=== PATIENT | female | born 1965 | race Caucasian/White ===

== ENCOUNTER 2017-12-27 10:10 | Inpatient (IN) | payer OTHER ==
[2017-12-27] MEDS ORDERED: Potassium Chloride 10 MEQ in Premix Bag 1 BAG IV ONE (10:35)
[2017-12-27] MEDS ORDERED: cefOXitin 2 GM in Premix Bag 1 BAG IV ONE (10:36)
[2017-12-27] MEDS ORDERED: Sodium Chloride 0.9% 1,000 ML IV SCH (10:45)
--- NOTE | 2017-12-27 12:54 | EDM.PDOC ---
ED HPI GENERAL MEDICAL PROBLEM - General Chief Complaint: Abdominal Pain Stated Complaint: R SIDE ABD PAIN Time Seen by Provider: 12/27/17 10:16 Source of Information: Reports: Patient, RN Notes Reviewed - History of Present Illness INITIAL COMMENTS - FREE TEXT/NARRATIVE: 52-year-old lady has been referred here from [facility] for probable appendicitis. She first became ill about one week ago with vague nonspecific upper abdominal discomfort. That did last for several days and has not ever completely gone away. She states for the next 2 or 3 days she had loss of appetite low-grade fever chills, low energy and just "felt sick" spending much of that time in bed. Her appetite slowly did improve a few days ago and she has become more active but there has been lower abdominal discomfort that has not gone away, worse with motion. 7 to the [facility] yesterday afternoon, labs were done and then CT of abdomen pelvis ordered for this morning. He obtained a CT this morning does show inflammatory process right lower abdomen suspicious for "ruptured appendicitis". - Related Data Allergies Allergy/AdvReac Type Severity Reaction Status Date / Time erythromycin base Allergy Pain Verified 12/27/17 10:26 [From Ilosone] IV Contrast Allergy Other Uncoded 12/27/17 10:26 Home Meds: Home Meds Diltiazem HCl [Diltiazem 24Hr ER] 360 mg PO DAILY 12/27/17 [History] Omeprazole/Sodium Bicarbonate [Zegerid 20 MG] 20 mg PO DAILY PRN 12/27/17 [ History] Spironolact/Hydrochlorothiazid [Spironolactone-Hctz 25-25 Tab] 25 mg PO DAILY [History] Past Medical History HEENT History: Reports: Impaired Vision Other HEENT History: wears eyeglasses, druzens OU. Cardiovascular History: Reports: Heart Murmur, Hypertension Gastrointestinal History: Reports: GERD, Hiatal Hernia [employer] History: Reports: Musculoskeletal History: Reports: Fracture Hematologic History: Reports: Anemia, Iron Deficiency - Infectious Disease History Infectious Disease History: Reports: Chicken Pox - Past Surgical History HEENT Surgical History: Reports: Tonsillectomy Social & Family History - Tobacco Use Smoking Status *Q: Never Smoker Second Hand Smoke Exposure: No - Caffeine Use Caffeine Use: Reports: Soda - Recreational Drug Use Recreational Drug Use: No ED ROS GENERAL - Review of Systems Review Of Systems: See Below Constitutional: Reports: Fever (Low-grade fever off-and-on for about a week), Chills (Many days ago, gone) HEENT: Denies: Throat Pain Respiratory: Denies: Shortness of Breath, Cough Cardiovascular: Denies: Chest Pain Endocrine: Reports: Fatigue GI/Abdominal: Reports: Abdominal Pain (For about 1 week, started upper abdomen, now lower abdomen), Decreased Appetite, Nausea : Reports: No Symptoms Musculoskeletal: Reports: Other (Generalized achiness) Skin: Reports: No Symptoms Neurological: Reports: Dizziness ED EXAM, GI/ABD - Physical Exam Exam: See Below General Appearance: Alert, No Apparent Distress Throat/Mouth: Normal Inspection, Normal Oropharynx Head: Atraumatic. No: Facial Swelling Neck: Supple, Full Range of Motion Respiratory/Chest: No Respiratory Distress, Lungs Clear, Normal Breath Sounds Cardiovascular: Tachycardia (Heart rate 100 on arrival to ED) GI/Abdominal Exam: Soft, Rebound (Very mild), Tender (Moderate tenderness right lower quadrant). No: Guarding Back Exam: No: CVA Tenderness (L), CVA Tenderness (R) Extremities: Normal Inspection, Normal Range of Motion Neurological: Alert, Oriented, No Motor/Sensory Deficits Skin Exam: Warm, Dry, Normal Color Course - Vital Signs Last Recorded V/S: Last Vital Signs Temp 99.1 F 12/27/17 11:14 Pulse 88 12/27/17 11:14 Resp 16 12/27/17 11:14 BP 180/90 H 12/27/17 11:14 Pulse Ox 97 12/27/17 11:14 - Orders/Labs/Meds Orders: Active Orders 24 hr Category Date Time Status Patient Status [ADT] Routine ADT 12/27/17 13:02 Active Oxygen Therapy [RC] PRN Care 12/27/17 13:02 Active VTE/DVT Education [RC] PER UNIT ROUTINE Care 12/27/17 13:02 Active Vital Signs [RC] Q4H Care 12/27/17 13:02 Active Nothing Per Oral Diet [DIET] Diet 12/27/17 Dinner Active CBC WITH AUTO DIFF [HEME] DAILY Lab 12/28/17 06:00 Ordered CBC WITH AUTO DIFF [HEME] DAILY Lab 12/29/17 06:00 Ordered CBC WITH AUTO DIFF [HEME] DAILY Lab 12/30/17 06:00 Ordered CBC WITH AUTO DIFF [HEME] DAILY Lab 12/31/17 06:00 Ordered Enoxaparin [Lovenox] Med 12/27/17 13:15 Active 40 mg SUBCUT DAILY HYDROmorphone [Dilaudid] Med 12/27/17 13:06 Active 0.5 mg IVPUSH Q2H PRN Ondansetron [Zofran] Med 12/27/17 13:06 Active 4 mg IVPUSH Q8H PRN Piperacillin/Tazobactam [Zosyn] 4.5 gm Med 12/27/17 16:00 Active Sodium Chloride 0.9% [Normal Saline] 100 ml IV ONETIME Piperacillin/Tazobactam [Zosyn] 4.5 gm Med 12/28/17 00:00 Active Sodium Chloride 0.9% [Normal Saline] 100 ml IV Q8H Sodium Chloride 0.9% [Normal Saline] 1,000 ml Med 12/27/17 13:15 Active IV ASDIRECTED Sodium Chloride 0.9% [Normal Saline] 1,000 ml Med 12/27/17 10:45 Active IV ONETIME Resuscitation Status Routine Resus Stat 12/27/17 13:02 Ordered Medication Orders Enoxaparin Sodium (Lovenox) 40 mg SUBCUT DAILY TONY Hydromorphone HCl (Dilaudid) 0.5 mg IVPUSH Q2H PRN PRN Reason: Pain Sodium Chloride (Normal Saline) 1,000 mls @ 999 mls/hr IV ONETIME TONY Last Admin: 12/27/17 11:05 Dose: 999 mls/hr Piperacillin Sod/Tazobactam (Sod 4.5 gm/ Sodium Chloride) 100 mls @ 200 mls/hr IV ONETIME ONE Stop: 12/27/17 16:29 Sodium Chloride (Normal Saline) 1,000 mls @ 125 mls/hr IV ASDIRECTED TONY Piperacillin Sod/Tazobactam (Sod 4.5 gm/ Sodium Chloride) 100 mls @ 25 mls/hr IV Q8H TONY Ondansetron HCl (Zofran) 4 mg IVPUSH Q8H PRN PRN Reason: Nausea/Vomiting Labs: Laboratory Tests 12/27/17 12/27/17 12/27/17 Range/Units 10:45 10:45 10:45 WBC 12.82 H (3.98-10.04) K/mm3 RBC 5.63 H (3.98-5.22) M/mm3 Hgb 15.3 (11.2-15.7) gm/L Hct 46.2 H (34.1-44.9) % MCV 82.1 (79.4-94.8) fl MCH 27.2 (25.6-32.2) pg MCHC 33.1 (32.2-35.5) g/dl RDW Std Deviation 39.7 (36.4-46.3) fL Plt Count 312 (182-369) K/mm3 MPV 10.3 (9.4-12.3) fl Neut % (Auto) 67.4 (34.0-71.1) % Lymph % (Auto) 21.4 (19.3-51.7) % [place] % (Auto) 8.9 (4.7-12.5) % Eos % (Auto) 0.5 L (0.7-5.8) Baso % (Auto) 0.6 (0.1-1.2) % Neut # (Auto) 8.63 H (1.56-6.13) K/mm3 Lymph # (Auto) 2.74 (1.18-3.74) K/mm3 [place] # (Auto) 1.14 H (0.24-0.36) K/mm3 Eos # (Auto) 0.07 (0.04-0.36) K/mm3 Baso # (Auto) 0.08 (0.01-0.08) K/mm3 Manual Slide Review Abnormal smear Sodium 139 (136-145) mEq/L Potassium 2.9 L (3.5-5.1) mEq/L Chloride 99 (98-107) mEq/L Carbon Dioxide 29 (21-32) mEq/L Anion Gap 13.9 (5-15) BUN 12 (7-18) mg/dL Creatinine 0.9 (0.55-1.02) mg/dL Est Cr Clr Drug Dosing 61.71 mL/min Estimated GFR (MDRD) > 60 (>60) mL/min BUN/Creatinine Ratio 13.3 L (14-18) Glucose 121 H (74-106) mg/dL Calcium 10.0 (8.5-10.1) mg/dL Total Bilirubin 0.5 (0.2-1.0) mg/dL AST 14 L (15-37) U/L ALT 30 (14-59) U/L Alkaline Phosphatase 81 (46-116) U/L C-Reactive Protein 12.4 H* (<1.0) mg/dL Total Protein 8.7 H (6.4-8.2) g/dl Albumin 3.4 (3.4-5.0) g/dl Globulin 5.3 gm/dL Albumin/Globulin Ratio 0.6 L (1-2) Meds: Medications Generic Name Dose Route Start Last Admin Trade Name Freq PRN Reason Stop Dose Admin Enoxaparin Sodium 40 mg 12/27/17 13:15 Lovenox SUBCUT DAILY TONY Hydromorphone HCl 0.5 mg 12/27/17 13:06 Dilaudid IVPUSH Q2H PRN Pain Sodium Chloride 1,000 mls @ 999 mls/hr 12/27/17 10:45 12/27/17 11:05 Normal Saline IV 999 mls/hr ONETIME TONY Administration Piperacillin Sod/Tazobactam 100 mls @ 200 mls/hr 12/27/17 16:00 Sod 4.5 gm/ Sodium Chloride IV 12/27/17 16:29 ONETIME ONE Sodium Chloride 1,000 mls @ 125 mls/hr 12/27/17 13:15 Normal Saline IV ASDIRECTED TONY Piperacillin Sod/Tazobactam 100 mls @ 25 mls/hr 12/28/17 00:00 Sod 4.5 gm/ Sodium Chloride IV Q8H TONY Ondansetron HCl 4 mg 12/27/17 13:06 Zofran IVPUSH Q8H PRN Nausea/Vomiting Discontinued Medications Generic Name Dose Route Start Last Admin Trade Name Freq PRN Reason Stop Dose Admin Potassium Chloride 10 meq/ 100 mls @ 50 mls/hr 12/27/17 10:35 12/27/17 11:50 Premix IV 12/27/17 12:34 50 mls/hr ASDIRECTED ONE Administration Cefoxitin Sodium 2 gm/ Premix 50 mls @ 100 mls/hr 12/27/17 10:36 12/27/17 11: 10 IV 12/27/17 11:05 100 mls/hr ONETIME ONE Administration - Re-Assessments/Exams Free Text/Narrative Re-Assessment/Exam: 12/27/17 13:52 White blood count, C-reactive protein were moderately elevated. CT of abdomen shows inflammatory change right lower abdomen strongly suggestive for ruptured appendix. See radiology report for details. We have started IV antibiotics. I discussed this with Dr. Lynch., General surgeon on-call. Valuated patient here in the ED, reviewed the CT personally. At this time he does not see any sign of abscess formation. There is a large area of phlegmon. His recommendation is hospital admission for further IV antibiotics. Patient is agreeable to that plan. Departure - Departure Time of Disposition: 12:00 Disposition: Admitted As Inpatient 64 Condition: Serious Clinical Impression: Appendicitis Qualifiers: Appendicitis type: acute appendicitis Acute appendicitis type: with localized peritonitis Qualified Code(s): K35.3 - Acute appendicitis with localized peritonitis - Discharge Information Referrals: Brooke [facility]s [facility]FORMAN[facility] CONSULTANT [Primary Care Provider] - Forms: ED Department Discharge - My Orders Last 24 Hours: My Active Orders 12/27/17 10:45 Sodium Chloride 0.9% [Normal Saline] 1,000 ml IV ONETIME - Assessment/Plan Last 24 Hours: My Active Orders 12/27/17 10:45 Sodium Chloride 0.9% [Normal Saline] 1,000 ml IV ONETIME
[2017-12-27] MEDS ORDERED: HYDROmorphone 0.5 MG/0.5 ML SYRINGE IVPUSH PRN (13:06)
--- NOTE | 2017-12-27 13:07 | PCM.HP ---
H&P History of Present Illness - General Date of Service: 12/27/17 Admit Problem/Dx: Admission Diagnosis/Problem Admission Diagnosis/Problem Appendicitis Source of Information: Patient History Limitations: Reports: No Limitations - History of Present Illness Initial Comments - Free Text/Narative: 52 yo female, presents with abdominal pain that started about 8 days ago, starting in the upper abdomen, then migrating to the RLQ. Pain was associated with nausea and dry heaves, which resolved a few days ago. Patient did have subjective fevers, which have also resolved. Last meal was last night (almost 24 hours ago). She does have an appetite. RLQ abdominal pain has been mild but persistent. Given her persistent symptoms, she went to see her PCM, who ordered a CT scan for this morning. CT scan of the abd/pelvis showed findings concerning for ruptured appendicitis, which brought her to the ED. Patient with diarrhea from the contrast that she drank. Denies CP/SOB. - Related Data Allergies/Adverse Reactions: Allergies Allergy/AdvReac Type Severity Reaction Status Date / Time erythromycin base Allergy Pain Verified 12/27/17 16:20 [From Ilosone] IV Contrast Allergy Other Uncoded 12/27/17 10:26 Home Medications: Home Meds Diltiazem HCl [Diltiazem 24Hr ER] 360 mg PO DAILY 12/27/17 [History] Omeprazole/Sodium Bicarbonate [Zegerid 20 MG] 20 mg PO DAILY PRN 12/27/17 [ History] Spironolact/Hydrochlorothiazid [Spironolactone-Hctz 25-25 Tab] 25 mg PO DAILY [History] Past Medical History HEENT History: Reports: Impaired Vision Other HEENT History: wears eyeglasses, druzens OU. Cardiovascular History: Reports: Heart Murmur, Hypertension Gastrointestinal History: Reports: GERD, Hiatal Hernia MANAGER MEDIA History: Reports: Musculoskeletal History: Reports: Fracture Hematologic History: Reports: Anemia, Iron Deficiency - Infectious Disease History Infectious Disease History: Reports: Chicken Pox - Past Surgical History HEENT Surgical History: Reports: Tonsillectomy - History Comment History Comment: SEVERE OBESITY (BMI 47) Social & Family History - Tobacco Use Smoking Status *Q: Never Smoker Second Hand Smoke Exposure: No - Caffeine Use Caffeine Use: Reports: Soda - Recreational Drug Use Recreational Drug Use: No H&P Review of Systems - Review of Systems: Review Of Systems: ROS reveals no pertinent complaints other than HPI. Exam - Exam Exam: See Below - Vital Signs Vital Signs: Last Vital Signs Temp 37.3 C 12/27/17 11:14 Pulse 88 12/27/17 11:14 Resp 16 12/27/17 11:14 BP 180/90 H 12/27/17 11:14 Pulse Ox 97 12/27/17 11:14 Weight: 126.099 kg - Exam General: Alert, Oriented, Cooperative HEENT: Conjunctiva Clear Lungs: Clear to Auscultation, Normal Respiratory Effort Cardiovascular: Regular Rate, Regular Rhythm, Normal S1, Normal S2. No: Systolic Murmur GI/Abdominal Exam: Soft, Tender (MILDLY TENDER IN THE RLQ), Other (OBESE) - Patient Data Lab Results Last 24 hrs: Laboratory Results - last 24 hr 12/27/17 12/27/17 12/27/17 Range/Units 10:45 10:45 10:45 WBC 12.82 H (3.98-10.04) K/mm3 RBC 5.63 H (3.98-5.22) M/mm3 Hgb 15.3 (11.2-15.7) gm/L Hct 46.2 H (34.1-44.9) % MCV 82.1 (79.4-94.8) fl MCH 27.2 (25.6-32.2) pg MCHC 33.1 (32.2-35.5) g/dl RDW Std Deviation 39.7 (36.4-46.3) fL Plt Count 312 (182-369) K/mm3 MPV 10.3 (9.4-12.3) fl Neut % (Auto) 67.4 (34.0-71.1) % Lymph % (Auto) 21.4 (19.3-51.7) % [place] % (Auto) 8.9 (4.7-12.5) % Eos % (Auto) 0.5 L (0.7-5.8) Baso % (Auto) 0.6 (0.1-1.2) % Neut # (Auto) 8.63 H (1.56-6.13) K/mm3 Lymph # (Auto) 2.74 (1.18-3.74) K/mm3 [place] # (Auto) 1.14 H (0.24-0.36) K/mm3 Eos # (Auto) 0.07 (0.04-0.36) K/mm3 Baso # (Auto) 0.08 (0.01-0.08) K/mm3 Manual Slide Review Abnormal smear Sodium 139 (136-145) mEq/L Potassium 2.9 L (3.5-5.1) mEq/L Chloride 99 (98-107) mEq/L Carbon Dioxide 29 (21-32) mEq/L Anion Gap 13.9 (5-15) BUN 12 (7-18) mg/dL Creatinine 0.9 (0.55-1.02) mg/dL Est Cr Clr Drug Dosing 61.71 mL/min Estimated GFR (MDRD) > 60 (>60) mL/min BUN/Creatinine Ratio 13.3 L (14-18) Glucose 121 H (74-106) mg/dL Calcium 10.0 (8.5-10.1) mg/dL Total Bilirubin 0.5 (0.2-1.0) mg/dL AST 14 L (15-37) U/L ALT 30 (14-59) U/L Alkaline Phosphatase 81 (46-116) U/L C-Reactive Protein 12.4 H* (<1.0) mg/dL Total Protein 8.7 H (6.4-8.2) g/dl Albumin 3.4 (3.4-5.0) g/dl Globulin 5.3 gm/dL Albumin/Globulin Ratio 0.6 L (1-2) Result Diagrams: 12/27/17 10:45 12/27/17 10:45 Problem List Initiated/Reviewed/Updated: Yes Orders Last 24hrs: Active Orders 24 hr Category Date Time Status Patient Status [ADT] Routine ADT 12/27/17 13:02 Ordered Oxygen Therapy [RC] PRN Care 12/27/17 13:02 Ordered VTE/DVT Education [RC] PER UNIT ROUTINE Care 12/27/17 13:02 Ordered Vital Signs [RC] Q4H Care 12/27/17 13:02 Ordered Nothing Per Oral Diet [DIET] Diet 12/27/17 Dinner Ordered CBC WITH AUTO DIFF [HEME] DAILY Lab 12/28/17 06:00 Ordered CBC WITH AUTO DIFF [HEME] DAILY Lab 12/29/17 06:00 Ordered CBC WITH AUTO DIFF [HEME] DAILY Lab 12/30/17 06:00 Ordered CBC WITH AUTO DIFF [HEME] DAILY Lab 12/31/17 06:00 Ordered Enoxaparin [Lovenox] Med 12/27/17 13:15 Ordered 40 mg SUBCUT DAILY HYDROmorphone [Dilaudid] Med 12/27/17 13:06 Ordered 0.5 mg IVPUSH Q2H PRN Ondansetron [Zofran] Med 12/27/17 13:06 Ordered 4 mg IVPUSH Q8H PRN Piperacillin/Tazobactam [Zosyn] 4.5 gm Med 12/27/17 16:00 Ordered Sodium Chloride 0.9% [Normal Saline] 100 ml IV Q8H Sodium Chloride 0.9% @ 125 MLS/HR (1000ml Bag) Med 12/27/17 13:15 Ordered Sodium Chloride 0.9% [Normal Saline] 1,000 ml IV ASDIRECTED Sodium Chloride 0.9% [Normal Saline] 1,000 ml Med 12/27/17 10:45 Active IV ONETIME Resuscitation Status Routine Resus Stat 12/27/17 13:02 Ordered Medication Orders Sodium Chloride (Normal Saline) 1,000 mls @ 999 mls/hr IV ONETIME TONY Last Admin: 12/27/17 11:05 Dose: 999 mls/hr Assessment/Plan Comment:: 52 yo female, h/o HTN, GERD, severe obesity (BMI 47.7), presents with perforated appendicitis with phlegmon. CT scan images were reviewed. Patient would benefit from initial nonoperative management. - Admit, NPO, IV fluids. - IV Zosyn. - Will have patient on home antihypertensives (restart tomorrow). - Daily CBC. - Monitor fever curve and symptoms. - Lovenox 40 mg SQ daily for VTE prophylaxis. - Protonix daily. Ernst Ricketts M.D., F.A.C.S. General Surgery Pager: [phone]
[2017-12-27] MEDS: Enoxaparin 40 MG/0.4 ML Syringe SUBCUT SCH (15:51)
[2017-12-27] MEDS: Sodium Chloride 0.9% 1,000 ML IV SCH ×2 (15:51→23:31)
[2017-12-27] MEDS ORDERED: Piperacillin/Tazobactam 4.5 GM in Sodium Chloride 0.9% 100 ML IV ONE (16:00)
[2017-12-27] MEDS ORDERED: Acetaminophen 325 MG Tab PO PRN (16:56)
[2017-12-27] MEDS: Piperacillin/Tazobactam 4.5 GM in Sodium Chloride 0.9% 100 ML IV SCH (23:31)
[2017-12-28] MEDS: Ondansetron 4 MG/2 ML SDV IVPUSH PRN ×2 (05:32→17:16)
[2017-12-28] MEDS: Pantoprazole 40 MG Vial IVPUSH SCH (09:02)
[2017-12-28] MEDS: Enoxaparin 40 MG/0.4 ML Syringe SUBCUT SCH (09:02)
[2017-12-28] MEDS: Piperacillin/Tazobactam 4.5 GM in Sodium Chloride 0.9% 100 ML IV SCH ×2 (09:02→16:37)
--- NOTE | 2017-12-28 09:16 | PCM.PN ---
- General Info Date of Service: 12/28/17 Subjective Update: Early this morning, patient's IV infiltrated. Required a new IV. Otherwise, no acute events overnight. Received a dose of Dilaudid and Zofran this morning. Overall, pain in the RLQ has remained the same since admission yesterday. Patient does have an appetite and would like to drink. - Patient Data Vitals - Most Recent: Last Vital Signs Temp 36.8 C 12/28/17 04:46 Pulse 86 12/28/17 04:46 Resp 16 12/28/17 04:46 BP 149/73 H 12/28/17 04:46 Pulse Ox 95 12/28/17 04:46 Weight - Most Recent: 125.22 kg I&O - Last 24 Hours: Intake & Output 12/27/17 12/28/17 12/28/17 22:59 06:59 14:59 Intake Total 1625 Output Total 550 Balance 1075 Lab Results Last 24 Hours: Laboratory Results - last 24 hr 12/27/17 12/27/17 12/27/17 Range/Units 10:45 10:45 10:45 WBC 12.82 H (3.98-10.04) K/mm3 RBC 5.63 H (3.98-5.22) M/mm3 Hgb 15.3 (11.2-15.7) gm/L Hct 46.2 H (34.1-44.9) % MCV 82.1 (79.4-94.8) fl MCH 27.2 (25.6-32.2) pg MCHC 33.1 (32.2-35.5) g/dl RDW Std Deviation 39.7 (36.4-46.3) fL Plt Count 312 (182-369) K/mm3 MPV 10.3 (9.4-12.3) fl Neut % (Auto) 67.4 (34.0-71.1) % Lymph % (Auto) 21.4 (19.3-51.7) % [place] % (Auto) 8.9 (4.7-12.5) % Eos % (Auto) 0.5 L (0.7-5.8) Baso % (Auto) 0.6 (0.1-1.2) % Neut # (Auto) 8.63 H (1.56-6.13) K/mm3 Lymph # (Auto) 2.74 (1.18-3.74) K/mm3 [place] # (Auto) 1.14 H (0.24-0.36) K/mm3 Eos # (Auto) 0.07 (0.04-0.36) K/mm3 Baso # (Auto) 0.08 (0.01-0.08) K/mm3 Manual Slide Review Abnormal smear Sodium 139 (136-145) mEq/L Potassium 2.9 L (3.5-5.1) mEq/L Chloride 99 (98-107) mEq/L Carbon Dioxide 29 (21-32) mEq/L Anion Gap 13.9 (5-15) BUN 12 (7-18) mg/dL Creatinine 0.9 (0.55-1.02) mg/dL Est Cr Clr Drug Dosing 61.71 mL/min Estimated GFR (MDRD) > 60 (>60) mL/min BUN/Creatinine Ratio 13.3 L (14-18) Glucose 121 H (74-106) mg/dL Calcium 10.0 (8.5-10.1) mg/dL Phosphorus (2.6-4.7) mg/dL Magnesium (1.8-2.4) mg/dl Total Bilirubin 0.5 (0.2-1.0) mg/dL AST 14 L (15-37) U/L ALT 30 (14-59) U/L Alkaline Phosphatase 81 (46-116) U/L C-Reactive Protein 12.4 H* (<1.0) mg/dL Total Protein 8.7 H (6.4-8.2) g/dl Albumin 3.4 (3.4-5.0) g/dl Globulin 5.3 gm/dL Albumin/Globulin Ratio 0.6 L (1-2) 18 12/28/17 Range/Units 05:40 05:40 WBC 10.18 H (3.98-10.04) K/mm3 RBC 5.29 H (3.98-5.22) M/mm3 Hgb 14.6 (11.2-15.7) gm/L Hct 44.6 (34.1-44.9) % MCV 84.3 (79.4-94.8) fl MCH 27.6 (25.6-32.2) pg MCHC 32.7 (32.2-35.5) g/dl RDW Std Deviation 41.3 (36.4-46.3) fL Plt Count 297 (182-369) K/mm3 MPV 10.3 (9.4-12.3) fl Neut % (Auto) 69.1 (34.0-71.1) % Lymph % (Auto) 20.1 (19.3-51.7) % [place] % (Auto) 8.1 (4.7-12.5) % Eos % (Auto) 1.3 (0.7-5.8) Baso % (Auto) 0.4 (0.1-1.2) % Neut # (Auto) 7.04 H (1.56-6.13) K/mm3 Lymph # (Auto) 2.05 (1.18-3.74) K/mm3 [place] # (Auto) 0.82 H (0.24-0.36) K/mm3 Eos # (Auto) 0.13 (0.04-0.36) K/mm3 Baso # (Auto) 0.04 (0.01-0.08) K/mm3 Manual Slide Review Normal smear Sodium 141 (136-145) mEq/L Potassium 2.9 L (3.5-5.1) mEq/L Chloride 103 (98-107) mEq/L Carbon Dioxide 26 (21-32) mEq/L Anion Gap 14.9 (5-15) BUN 10 (7-18) mg/dL Creatinine 1.0 (0.55-1.02) mg/dL Est Cr Clr Drug Dosing 55.54 mL/min Estimated GFR (MDRD) 58 (>60) mL/min BUN/Creatinine Ratio 10.0 L (14-18) Glucose 112 H (74-106) mg/dL Calcium 9.6 (8.5-10.1) mg/dL Phosphorus 3.9 (2.6-4.7) mg/dL Magnesium 2.1 (1.8-2.4) mg/dl Total Bilirubin (0.2-1.0) mg/dL AST (15-37) U/L ALT (14-59) U/L Alkaline Phosphatase (46-116) U/L C-Reactive Protein (<1.0) mg/dL Total Protein (6.4-8.2) g/dl Albumin (3.4-5.0) g/dl Globulin gm/dL Albumin/Globulin Ratio (1-2) Med Orders - Current: Current Medications Acetaminophen (Tylenol) 650 mg PO Q6H PRN PRN Reason: Fever Diltiazem HCl (Dilacor Xr) 240 mg PO DAILY [facility] Enoxaparin Sodium (Lovenox) 40 mg SUBCUT DAILY [facility] Last Admin: 12/28/17 09:02 Dose: 40 mg Hydromorphone HCl (Dilaudid) 0.5 mg IVPUSH Q2H PRN PRN Reason: Pain Last Admin: 12/28/17 06:32 Dose: 0.5 mg Sodium Chloride (Normal Saline) 1,000 mls @ 125 mls/hr IV ASDIRECTED [facility] Last Admin: 12/27/17 23:31 Dose: 125 mls/hr Piperacillin Sod/Tazobactam (Sod 4.5 gm/ Sodium Chloride) 100 mls @ 25 mls/hr IV Q8H [facility] Last Admin: 12/28/17 09:02 Dose: 25 mls/hr Potassium Chloride 10 meq/ (Premix) 100 mls @ 100 mls/hr IV Q1H [facility] Stop: 12/28/17 13:14 Ondansetron HCl (Zofran) 4 mg IVPUSH Q8H PRN PRN Reason: Nausea/Vomiting Last Admin: 12/28/17 05:32 Dose: 4 mg Pantoprazole Sodium (Protonix Iv) 40 mg IVPUSH DAILY [facility] Last Admin: 12/28/17 09:02 Dose: 40 mg Discontinued Medications Potassium Chloride 10 meq/ (Premix) 100 mls @ 50 mls/hr IV ASDIRECTED ONE Stop: 12/27/17 12:34 Last Admin: 12/27/17 11:50 Dose: 50 mls/hr Sodium Chloride (Normal Saline) 1,000 mls @ 999 mls/hr IV ONETIME [facility] Last Admin: 12/27/17 11:05 Dose: 999 mls/hr Cefoxitin Sodium 2 gm/ Premix 50 mls @ 100 mls/hr IV ONETIME ONE Stop: 12/27/17 11:05 Last Admin: 12/27/17 11:10 Dose: 100 mls/hr Piperacillin Sod/Tazobactam (Sod 4.5 gm/ Sodium Chloride) 100 mls @ 200 mls/hr IV ONETIME ONE Stop: 12/27/17 16:29 Last Admin: 12/27/17 15:52 Dose: 200 mls/hr - Exam General: Alert, Oriented, Cooperative GI/Abdominal Exam: Soft, Tender (mildy tender to the RLQ with deep palpation.) Extremities: No Pedal Edema Psy/Mental Status: Alert, Normal Affect, Normal Mood - Problem List Review Problem List Initiated/Reviewed/Updated: Yes - My Orders Last 24 Hours: My Active Orders 12/27/17 13:02 Patient Status [ADT] Routine VTE/DVT Education [RC] DAILY Vital Signs [RC] Q4HR Resuscitation Status Routine 12/27/17 13:06 HYDROmorphone [Dilaudid] 0.5 mg IVPUSH Q2H PRN Ondansetron [Zofran] 4 mg IVPUSH Q8H PRN 12/27/17 13:15 Enoxaparin [Lovenox] 40 mg SUBCUT DAILY Sodium Chloride 0.9% [Normal Saline] 1,000 ml IV ASDIRECTED 12/27/17 15:56 Sequential Compression Device [OM.PC] Routine 12/27/17 16:56 Acetaminophen [Tylenol] 650 mg PO Q6H PRN 12/27/17 Dinner Nothing Per Oral Diet [DIET] 12/28/17 00:00 Piperacillin/Tazobactam [Zosyn] 4.5 gm Sodium Chloride 0.9% [Normal Saline] 100 ml IV Q8H 12/28/17 00:33 Up ad Renee [RC] ASDIRECTED 12/28/17 09:00 Pantoprazole [ProTONIX IV] 40 mg IVPUSH DAILY 12/28/17 09:15 Potassium Chloride [KCl 10 MEQ in Water 100 ML] 10 meq Premix Bag 1 bag IV Q1H 12/28/17 09:30 Diltiazem [Dilacor XR] 240 mg PO DAILY 12/29/17 05:11 BASIC METABOLIC PANEL,BMP [CHEM] AM MAGNESIUM [CHEM] AM PHOSPHORUS [CHEM] AM 12/29/17 06:00 CBC WITH AUTO DIFF [HEME] DAILY 12/30/17 05:11 BASIC METABOLIC PANEL,BMP [CHEM] AM 12/30/17 06:00 CBC WITH AUTO DIFF [HEME] DAILY 12/31/17 05:11 BASIC METABOLIC PANEL,BMP [CHEM] AM 12/31/17 06:00 CBC WITH AUTO DIFF [HEME] DAILY - Plan Plan:: 52 yo female, h/o HTN, GERD, severe obesity (BMI 47.7), presents with perforated appendicitis with phlegmon. HD#2. Overall, slight clinical improvement. - May have Percocet for pain control. - Start clear liquid diet. Recommended NPO after midnight. - Decrease IV fluids to 60 cc/hr. Will discontinue if patient tolerates >50% of meals. - Resume home dose of diltiazem. - Afebrile. WBC decreased from 12.8k to 10.2k. Daily CBC. Continue IV Zosyn. - Lovenox 40 mg SQ daily for VTE prophylaxis. - Protonix daily. Ernst Ricketts M.D., F.A.C.S. General Surgery Pager: [phone]
[2017-12-28] MEDS: Sodium Chloride 0.9% 1,000 ML IV SCH (10:11)
[2017-12-28] MEDS ORDERED: Acetaminophen/oxyCODONE 325-5 MG Tab PO PRN (10:24)
[2017-12-28] MEDS: Diltiazem 240 MG Cap.ER PO SCH (11:04)
[2017-12-28] MEDS: Potassium Chloride 10 MEQ in Premix Bag 1 BAG IV SCH ×4 (11:04→15:09)
[2017-12-28] MEDS: D5 1/2 NS w/ 20 mEq/L KCl 1,000 ML IV SCH (16:34)
[2017-12-29] MEDS: Piperacillin/Tazobactam 4.5 GM in Sodium Chloride 0.9% 100 ML IV SCH ×3 (00:06→15:30)
[2017-12-29] MEDS: Pantoprazole 40 MG Vial IVPUSH SCH (09:30)
[2017-12-29] MEDS: Diltiazem 240 MG Cap.ER PO SCH (09:30)
[2017-12-29] MEDS: Enoxaparin 40 MG/0.4 ML Syringe SUBCUT SCH (09:30)
[2017-12-29] MEDS: D5 1/2 NS w/ 20 mEq/L KCl 1,000 ML IV SCH (09:31)
--- NOTE | 2017-12-29 10:36 | PCM.PN ---
- General Info Date of Service: 12/29/17 Subjective Update: Overnight, no acute events. She did have infiltration of her IV yesterday, during IV potassium administration. Today, she reports pain as about the same, well-controlled on Percocet. No nausea/emesis. She tolerated liquid diet yesterday. She does have an appetite. - Patient Data Vitals - Most Recent: Last Vital Signs Temp 37.3 C 12/29/17 07:35 Pulse 84 12/29/17 07:35 Resp 18 12/29/17 07:35 BP 131/58 L 12/29/17 07:35 Pulse Ox 94 L 12/29/17 07:35 Weight - Most Recent: 127.097 kg I&O - Last 24 Hours: Intake & Output 12/28/17 12/29/17 12/29/17 22:59 06:59 14:59 Intake Total 2334 1424 Output Total 1050 900 Balance 1284 524 Lab Results Last 24 Hours: Laboratory Results - last 24 hr 12/29/17 12/29/17 Range/Units 05:56 05:56 WBC 10.94 H (3.98-10.04) K/mm3 RBC 4.59 (3.98-5.22) M/mm3 Hgb 12.7 (11.2-15.7) gm/L Hct 39.2 (34.1-44.9) % MCV 85.4 (79.4-94.8) fl MCH 27.7 (25.6-32.2) pg MCHC 32.4 (32.2-35.5) g/dl RDW Std Deviation 41.0 (36.4-46.3) fL Plt Count 274 (182-369) K/mm3 MPV 10.4 (9.4-12.3) fl Neut % (Auto) 71.8 H (34.0-71.1) % Lymph % (Auto) 17.5 L (19.3-51.7) % [place] % (Auto) 8.6 (4.7-12.5) % Eos % (Auto) 1.2 (0.7-5.8) Baso % (Auto) 0.2 (0.1-1.2) % Neut # (Auto) 7.86 H (1.56-6.13) K/mm3 Lymph # (Auto) 1.91 (1.18-3.74) K/mm3 [place] # (Auto) 0.94 H (0.24-0.36) K/mm3 Eos # (Auto) 0.13 (0.04-0.36) K/mm3 Baso # (Auto) 0.02 (0.01-0.08) K/mm3 Sodium 140 (136-145) mEq/L Potassium 3.3 L (3.5-5.1) mEq/L Chloride 107 (98-107) mEq/L Carbon Dioxide 25 (21-32) mEq/L Anion Gap 11.3 (5-15) BUN 6 L (7-18) mg/dL Creatinine 0.9 (0.55-1.02) mg/dL Est Cr Clr Drug Dosing 61.71 mL/min Estimated GFR (MDRD) > 60 (>60) mL/min BUN/Creatinine Ratio 6.7 L (14-18) Glucose 121 H (74-106) mg/dL Calcium 8.9 (8.5-10.1) mg/dL Phosphorus 3.8 (2.6-4.7) mg/dL Magnesium 1.8 (1.8-2.4) mg/dl Med Orders - Current: Current Medications Acetaminophen (Tylenol) 650 mg PO Q6H PRN PRN Reason: Fever Diltiazem HCl (Dilacor Xr) 240 mg PO DAILY [facility] Last Admin: 12/29/17 09:30 Dose: 240 mg Enoxaparin Sodium (Lovenox) 40 mg SUBCUT DAILY [facility] Last Admin: 12/29/17 09:30 Dose: 40 mg Hydromorphone HCl (Dilaudid) 0.5 mg IVPUSH Q2H PRN PRN Reason: Pain Last Admin: 12/28/17 06:32 Dose: 0.5 mg Piperacillin Sod/Tazobactam (Sod 4.5 gm/ Sodium Chloride) 100 mls @ 25 mls/hr IV Q8H [facility] Last Admin: 12/29/17 07:09 Dose: 25 mls/hr Potassium Chloride/Dextrose/Sod Cl (D5 1/2 Ns W/ 20 Meq/L Kcl) 1,000 mls @ 60 mls/hr IV ASDIRECTED [facility] Last Admin: 12/29/17 09:31 Dose: 60 mls/hr Ondansetron HCl (Zofran) 4 mg IVPUSH Q8H PRN PRN Reason: Nausea/Vomiting Last Admin: 12/28/17 17:16 Dose: 4 mg Oxycodone/Acetaminophen (Percocet 325-5 Mg) 1 tab PO Q4H PRN PRN Reason: Pain Last Admin: 12/29/17 04:34 Dose: 1 tab Pantoprazole Sodium (Protonix Iv) 40 mg IVPUSH DAILY [facility] Last Admin: 12/29/17 09:30 Dose: 40 mg Discontinued Medications Potassium Chloride 10 meq/ (Premix) 100 mls @ 50 mls/hr IV ASDIRECTED ONE Stop: 12/27/17 12:34 Last Admin: 12/27/17 11:50 Dose: 50 mls/hr Sodium Chloride (Normal Saline) 1,000 mls @ 999 mls/hr IV ONETIME [facility] Last Admin: 12/27/17 11:05 Dose: 999 mls/hr Cefoxitin Sodium 2 gm/ Premix 50 mls @ 100 mls/hr IV ONETIME ONE Stop: 12/27/17 11:05 Last Admin: 12/27/17 11:10 Dose: 100 mls/hr Piperacillin Sod/Tazobactam (Sod 4.5 gm/ Sodium Chloride) 100 mls @ 200 mls/hr IV ONETIME ONE Stop: 12/27/17 16:29 Last Admin: 12/27/17 15:52 Dose: 200 mls/hr Sodium Chloride (Normal Saline) 1,000 mls @ 125 mls/hr IV ASDIRECTED [facility] Last Admin: 12/28/17 10:11 Dose: 125 mls/hr Potassium Chloride 10 meq/ (Premix) 100 mls @ 100 mls/hr IV Q1H [facility] Stop: 12/28/17 13:14 Last Admin: 12/28/17 15:09 Dose: 75 mls/hr - Exam General: Alert, Oriented, Cooperative GI/Abdominal Exam: Soft, No Distention, Tender (minimally tender in the RLQ. No peritoneal signs.) - Problem List & Annotations (1) Perforated appendicitis SNOMED Code(s): 30170408 Code(s): K35.2 - ACUTE APPENDICITIS WITH GENERALIZED PERITONITIS Status: Acute Current Visit: Yes - Problem List Review Problem List Initiated/Reviewed/Updated: Yes - My Orders Last 24 Hours: My Active Orders 12/28/17 10:24 Acetaminophen/oxyCODONE [Percocet 325-5 MG] 1 tab PO Q4H PRN 12/28/17 10:30 D5 1/2 NS w/ 20 mEq/L KCl 1,000 ml IV ASDIRECTED 12/28/17 Lunch Clear Liquid Diet [DIET] 12/30/17 05:11 BASIC METABOLIC PANEL,BMP [CHEM] AM 12/30/17 06:00 CBC WITH AUTO DIFF [HEME] DAILY 12/31/17 05:11 BASIC METABOLIC PANEL,BMP [CHEM] AM 12/31/17 06:00 CBC WITH AUTO DIFF [HEME] DAILY - Plan Plan:: 52 yo female, h/o HTN, GERD, severe obesity (BMI 47.7), presents with perforated appendicitis with phlegmon. HD#3. Clinically stable, with mild pain controlled with oral pain medication, afebrile, and WBC stable at slightly over 10k. - Advance from liquid to regular diet today. Recommended NPO after midnight, in case procedure indicated tomorrow. - Discontinue IV fluids. - Continue home dose of Diltiazem. - Continue IV Zosyn. - Replace K. - Lovenox 40 mg SQ daily for VTE prophylaxis. - Protonix daily. Transition to oral Protonix. Ernst Ricketts M.D., F.A.C.S. General Surgery Pager: [phone]
[2017-12-29] MEDS ORDERED: Potassium Chloride 20 MEQ Tab.ER PO ONE (10:43)
[2017-12-30] MEDS: Piperacillin/Tazobactam 4.5 GM in Sodium Chloride 0.9% 100 ML IV SCH ×3 (00:46→16:02)
[2017-12-30] MEDS: Ondansetron 4 MG/2 ML SDV IVPUSH PRN ×2 (02:26→11:14)
[2017-12-30] MEDS: Diltiazem 240 MG Cap.ER PO SCH (08:35)
[2017-12-30] MEDS: Enoxaparin 40 MG/0.4 ML Syringe SUBCUT SCH (08:35)
[2017-12-30] MEDS ORDERED: Pantoprazole 40 MG Tab.CR PO SCH (09:00)
--- NOTE | 2017-12-30 09:54 | PCM.PN ---
- General Info Date of Service: 12/30/17 Subjective Update: Overnight, patient had worsening nausea, requiring IV Zofran. NO emesis. She has also been feeling "cold and clammy." This is the worst she has felt since being hospitalized. She does report resolution of her abdominal pain. She tolerated regular diet yesterday. Has been passing flatus and had a solid bowel movement yesterday. - Patient Data Vitals - Most Recent: Last Vital Signs Temp 36.6 C 12/30/17 07:59 Pulse 87 12/30/17 07:59 Resp 16 12/30/17 07:59 BP 157/67 H 12/30/17 07:59 Pulse Ox 93 L 12/30/17 07:59 Weight - Most Recent: 127.278 kg I&O - Last 24 Hours: Intake & Output 12/29/17 12/30/17 12/30/17 22:59 06:59 14:59 Intake Total 1409 400 Output Total 400 1100 Balance 1009 -700 Lab Results Last 24 Hours: Laboratory Results - last 24 hr 12/30/17 12/30/17 Range/Units 06:05 07:57 WBC 12.09 H (3.98-10.04) K/mm3 RBC 4.82 (3.98-5.22) M/mm3 Hgb 13.3 (11.2-15.7) gm/L Hct 40.6 (34.1-44.9) % MCV 84.2 (79.4-94.8) fl MCH 27.6 (25.6-32.2) pg MCHC 32.8 (32.2-35.5) g/dl RDW Std Deviation 40.6 (36.4-46.3) fL Plt Count 275 (182-369) K/mm3 MPV 10.1 (9.4-12.3) fl Neut % (Auto) 72.4 H (34.0-71.1) % Lymph % (Auto) 17.5 L (19.3-51.7) % [place] % (Auto) 7.9 (4.7-12.5) % Eos % (Auto) 1.2 (0.7-5.8) Baso % (Auto) 0.2 (0.1-1.2) % Neut # (Auto) 8.74 H (1.56-6.13) K/mm3 Lymph # (Auto) 2.12 (1.18-3.74) K/mm3 [place] # (Auto) 0.95 H (0.24-0.36) K/mm3 Eos # (Auto) 0.15 (0.04-0.36) K/mm3 Baso # (Auto) 0.03 (0.01-0.08) K/mm3 POC Glucose 122 H (70-105) mg/dL Med Orders - Current: Current Medications Acetaminophen (Tylenol) 650 mg PO Q6H PRN PRN Reason: Fever Diltiazem HCl (Dilacor Xr) 240 mg PO DAILY [facility] Last Admin: 12/30/17 08:35 Dose: Not Given Enoxaparin Sodium (Lovenox) 40 mg SUBCUT DAILY [facility] Last Admin: 12/30/17 08:35 Dose: Not Given Hydromorphone HCl (Dilaudid) 0.5 mg IVPUSH Q2H PRN PRN Reason: Pain Last Admin: 12/28/17 06:32 Dose: 0.5 mg Piperacillin Sod/Tazobactam (Sod 4.5 gm/ Sodium Chloride) 100 mls @ 25 mls/hr IV Q8H [facility] Last Admin: 12/30/17 08:27 Dose: 25 mls/hr Ondansetron HCl (Zofran) 4 mg IVPUSH Q8H PRN PRN Reason: Nausea/Vomiting Last Admin: 12/30/17 02:26 Dose: 4 mg Oxycodone/Acetaminophen (Percocet 325-5 Mg) 1 tab PO Q4H PRN PRN Reason: Pain Last Admin: 12/29/17 04:34 Dose: 1 tab Pantoprazole Sodium (Protonix) 40 mg PO DAILY [facility] Last Admin: 12/30/17 08:27 Dose: 40 mg Discontinued Medications Potassium Chloride 10 meq/ (Premix) 100 mls @ 50 mls/hr IV ASDIRECTED ONE Stop: 12/27/17 12:34 Last Admin: 12/27/17 11:50 Dose: 50 mls/hr Sodium Chloride (Normal Saline) 1,000 mls @ 999 mls/hr IV ONETIME [facility] Last Admin: 12/27/17 11:05 Dose: 999 mls/hr Cefoxitin Sodium 2 gm/ Premix 50 mls @ 100 mls/hr IV ONETIME ONE Stop: 12/27/17 11:05 Last Admin: 12/27/17 11:10 Dose: 100 mls/hr Piperacillin Sod/Tazobactam (Sod 4.5 gm/ Sodium Chloride) 100 mls @ 200 mls/hr IV ONETIME ONE Stop: 12/27/17 16:29 Last Admin: 12/27/17 15:52 Dose: 200 mls/hr Sodium Chloride (Normal Saline) 1,000 mls @ 125 mls/hr IV ASDIRECTED [facility] Last Admin: 12/28/17 10:11 Dose: 125 mls/hr Potassium Chloride 10 meq/ (Premix) 100 mls @ 100 mls/hr IV Q1H [facility] Stop: 12/28/17 13:14 Last Admin: 12/28/17 15:09 Dose: 75 mls/hr Potassium Chloride/Dextrose/Sod Cl (D5 1/2 Ns W/ 20 Meq/L Kcl) 1,000 mls @ 60 mls/hr IV ASDIRECTED [facility] Last Admin: 12/29/17 09:31 Dose: 60 mls/hr Pantoprazole Sodium (Protonix Iv) 40 mg IVPUSH DAILY [facility] Last Admin: 12/29/17 09:30 Dose: 40 mg Potassium Chloride (Klor-Con M20) 40 meq PO ONETIME ONE Stop: 12/29/17 10:44 Last Admin: 12/29/17 11:10 Dose: 40 meq - Exam General: Alert, Oriented, Cooperative GI/Abdominal Exam: Soft, Non-Tender, Other (OBESE) - Problem List & Annotations (1) Perforated appendicitis SNOMED Code(s): 68732861 Code(s): K35.2 - ACUTE APPENDICITIS WITH GENERALIZED PERITONITIS Status: Acute Current Visit: Yes - Problem List Review Problem List Initiated/Reviewed/Updated: Yes - My Orders Last 24 Hours: My Active Orders 12/30/17 09:00 Pantoprazole [ProTONIX] 40 mg PO DAILY 12/30/17 09:48 Abdomen Pelvis w Cont [CT] Stat 12/30/17 Breakfast NPO After Midnight [Nothing per Oral After Midnight Diet] [DIET] 12/31/17 06:00 CBC WITH AUTO DIFF [HEME] DAILY - Plan Plan:: 52 yo female, h/o HTN, GERD, severe obesity (BMI 47.7), presents with perforated appendicitis with phlegmon. HD#4. Increased nausea with increasing WBC (from 10k to 12k). - Plan to obtain repeat CT scan to assess for interval changes, potential for development of abscess. - Continue IV Zosyn. - Continue NPO for now in case invasive procedure needed. - Hold her home dose of diltiazem and hold Lovenox this morning. Addendum (11:00) Patient with IV contrast allergy. Discussed with her the risks, benefits, and alternatives to using IV contrast for the CT scan. I explained that IV contrast improves the imaging, and premedication can be performed with IV antihistamine + /- IV steroid. However, the steroid has the potential to reduce the body's ability to fight the current infection. Patient prefers to have only IV Benadryl , as this was the only medication given when she had IV contrast the last time, and this was sufficient to control her allergic reaction. Will give Benadryl 50 mg IV 1 hour prior to the CT scan. Addendum (14:00) CT scan images reviewed. Results discussed with Radiologist. According to the Radiologist report: 1) There is a 7.5 x 4.9 x 4.7 cm fluid density in the RIGHT lower quadrant with surrounding inflammatory changes. Wall of possible abscess is identified on image 54. Consequently, it is potentially drainable. There are adjacent loops of inflamed bowel. 2) There are multiple loops of dilated small bowel with air-fluid levels. Loops of bowel with slowed motility. This may represent ileus or early small bowel obstruction. Surrounding inflammatory changes. 3) Mildly prominent LEFT adrenal 2.3 x 1.7 cm. 4) Perforated appendiciti. Per duty radiologist, the fluid collection appears amenable to percutaneous drainage. The patient will require interventional radiology service, which is not available here. The patient prefers to go to [place], [place] due to more family support in that area. She desires transport by PO since this would avoid the cost of the ambulance. The patient is stable and may travel by POV, as long as she is not driving. The case was discussed with Dr. Ann, General Surgeon, in [facility], who will accept care of the patient. The patient will present to the Emergency Room first. The case was discussed with Emergency Physician Dr. Riojas. The plan of care was updated with the patient. Ernst Ricketts M.D., F.A.C.S. General Surgery Pager: [phone]
[2017-12-30] MEDS ORDERED: diphenhydrAMINE 50 MG/ML SDV IVPUSH ONE (11:05)
[2017-12-30] MEDS ORDERED: Diatrizoate Meglumine/Diatrizoate Sodium 37% 120 ML Bottle PO ONE (11:24)
[2017-12-30] MEDS ORDERED: Sodium Chloride 0.9% 10 ML Syringe FLUSH ONE (11:24)
[2017-12-30] MEDS ORDERED: Iopamidol 755 Mg/ML 100 ML Bottle IVPUSH ONE (11:24)
--- NOTE | 2017-12-30 14:50 | PCM.DCSUM1 ---
Discharge Summary - Hospital Course Free Text/Narrative:: 52 yo female, had presented with over a week of abdominal pain, found to have perforated appendicitis on CT scan. She was admitted on [id number] on bowel rest and IV Zosyn. With improvement in symptoms, the patient's diet was advanced. However, today (HD#4), she developed worsening nausea and an increase in leukocytosis. A CT scan was obtained, which demonstrated development of an abscess in the RLQ. Per the duty radiologist, it appears amenable to percutaneous drainage. (See report for details). While inpatient, she was placed on Lovenox 40 mg SQ daily for VTE prophylaxis. Her home dose of diltiazem was continued. However, both of these medications were held today in preparation for possible procedure. Given the need for interventional radiology services (not available at this hospital), she will need to be transferred to a higher level of care. She preferred going to [place], [place], where there is more family support. She also wanted to avoid ambulation costs. She is stable to transfer by POV (as long as she doesn't drive). The case was discussed with Dr. Ann, General Surgeon, at [facility], who will accept her care. She will go through the [facility] ER. Ernst Ricketts M.D., F.A.C.S. General Surgery Pager: [phone] - Discharge Data Discharge Date: 12/30/17 Discharge Disposition: DC/Tfer to Acute Hospital 02 Condition: Stable - Discharge Diagnosis/Problem(s) (1) Perforated appendicitis SNOMED Code(s): 29094149 ICD Code: K35.2 - ACUTE APPENDICITIS WITH GENERALIZED PERITONITIS Status: Acute Current Visit: Yes - Patient Instructions Diet: NPO Other/Special Instructions: Proceed to [facility] Emergency Room. - Discharge Plan Home Medications: Home Meds Diltiazem HCl [Diltiazem 24Hr ER] 360 mg PO DAILY 12/27/17 [History] Omeprazole/Sodium Bicarbonate [Zegerid 20 MG] 20 mg PO DAILY PRN 12/27/17 [ History] Spironolact/Hydrochlorothiazid [Spironolactone-Hctz 25-25 Tab] 25 mg PO DAILY [History] Forms: ED Department Discharge Referrals: Brooke Bonds [employer] [Primary Care Provider] - (Ask your doctor about having a TDaP vaccine.) - Discharge Summary/Plan Comment DC Time >30 min.: Yes - Patient Data Vitals - Most Recent: Last Vital Signs Temp 36.8 C 12/30/17 12:08 Pulse 77 12/30/17 12:08 Resp 28 H 12/30/17 12:08 BP 126/55 L 12/30/17 12:08 Pulse Ox 93 L 12/30/17 12:08 Weight - Most Recent: 127.278 kg I&O - Last 24 hours: Intake & Output 12/29/17 12/30/17 12/30/17 22:59 06:59 14:59 Intake Total 1409 400 Output Total 400 1100 Balance 1009 -700 Lab Results - Last 24 hrs: Laboratory Results - last 24 hr 12/30/17 12/30/17 Range/Units 06:05 07:57 WBC 12.09 H (3.98-10.04) K/mm3 RBC 4.82 (3.98-5.22) M/mm3 Hgb 13.3 (11.2-15.7) gm/L Hct 40.6 (34.1-44.9) % MCV 84.2 (79.4-94.8) fl MCH 27.6 (25.6-32.2) pg MCHC 32.8 (32.2-35.5) g/dl RDW Std Deviation 40.6 (36.4-46.3) fL Plt Count 275 (182-369) K/mm3 MPV 10.1 (9.4-12.3) fl Neut % (Auto) 72.4 H (34.0-71.1) % Lymph % (Auto) 17.5 L (19.3-51.7) % [place] % (Auto) 7.9 (4.7-12.5) % Eos % (Auto) 1.2 (0.7-5.8) Baso % (Auto) 0.2 (0.1-1.2) % Neut # (Auto) 8.74 H (1.56-6.13) K/mm3 Lymph # (Auto) 2.12 (1.18-3.74) K/mm3 [place] # (Auto) 0.95 H (0.24-0.36) K/mm3 Eos # (Auto) 0.15 (0.04-0.36) K/mm3 Baso # (Auto) 0.03 (0.01-0.08) K/mm3 POC Glucose 122 H (70-105) mg/dL Med Orders - Current: Current Medications Acetaminophen (Tylenol) 650 mg PO Q6H PRN PRN Reason: Fever Diltiazem HCl (Dilacor Xr) 240 mg PO DAILY [facility] Last Admin: 12/30/17 08:35 Dose: Not Given Enoxaparin Sodium (Lovenox) 40 mg SUBCUT DAILY [facility] Last Admin: 12/30/17 08:35 Dose: Not Given Hydromorphone HCl (Dilaudid) 0.5 mg IVPUSH Q2H PRN PRN Reason: Pain Last Admin: 12/28/17 06:32 Dose: 0.5 mg Piperacillin Sod/Tazobactam (Sod 4.5 gm/ Sodium Chloride) 100 mls @ 25 mls/hr IV Q8H [facility] Last Admin: 12/30/17 08:27 Dose: 25 mls/hr Ondansetron HCl (Zofran) 4 mg IVPUSH Q8H PRN PRN Reason: Nausea/Vomiting Last Admin: 12/30/17 11:14 Dose: 4 mg Oxycodone/Acetaminophen (Percocet 325-5 Mg) 1 tab PO Q4H PRN PRN Reason: Pain Last Admin: 12/29/17 04:34 Dose: 1 tab Pantoprazole Sodium (Protonix) 40 mg PO DAILY [facility] Last Admin: 12/30/17 08:27 Dose: 40 mg Discontinued Medications Diatrizoate Meglum/Diatrizoate Sod (Gastrografin 37%) 90 ml PO ONETIME ONE Stop: 12/30/17 11:25 Last Admin: 12/30/17 11:35 Dose: 90 ml Diphenhydramine HCl (Benadryl) 50 mg IVPUSH ONETIME ONE Stop: 12/30/17 11:06 Last Admin: 12/30/17 11:09 Dose: 50 mg Potassium Chloride 10 meq/ (Premix) 100 mls @ 50 mls/hr IV ASDIRECTED ONE Stop: 12/27/17 12:34 Last Admin: 12/27/17 11:50 Dose: 50 mls/hr Sodium Chloride (Normal Saline) 1,000 mls @ 999 mls/hr IV ONETIME [facility] Last Admin: 12/27/17 11:05 Dose: 999 mls/hr Cefoxitin Sodium 2 gm/ Premix 50 mls @ 100 mls/hr IV ONETIME ONE Stop: 12/27/17 11:05 Last Admin: 12/27/17 11:10 Dose: 100 mls/hr Piperacillin Sod/Tazobactam (Sod 4.5 gm/ Sodium Chloride) 100 mls @ 200 mls/hr IV ONETIME ONE Stop: 12/27/17 16:29 Last Admin: 12/27/17 15:52 Dose: 200 mls/hr Sodium Chloride (Normal Saline) 1,000 mls @ 125 mls/hr IV ASDIRECTED [facility] Last Admin: 12/28/17 10:11 Dose: 125 mls/hr Potassium Chloride 10 meq/ (Premix) 100 mls @ 100 mls/hr IV Q1H [facility] Stop: 12/28/17 13:14 Last Admin: 12/28/17 15:09 Dose: 75 mls/hr Potassium Chloride/Dextrose/Sod Cl (D5 1/2 Ns W/ 20 Meq/L Kcl) 1,000 mls @ 60 mls/hr IV ASDIRECTED [facility] Last Admin: 12/29/17 09:31 Dose: 60 mls/hr Iopamidol (Isovue-370 (76%)) 100 ml IVPUSH ONETIME ONE Stop: 12/30/17 11:25 Last Admin: 12/30/17 11:35 Dose: 100 ml Pantoprazole Sodium (Protonix Iv) 40 mg IVPUSH DAILY [facility] Last Admin: 12/29/17 09:30 Dose: 40 mg Potassium Chloride (Klor-Con M20) 40 meq PO ONETIME ONE Stop: 12/29/17 10:44 Last Admin: 12/29/17 11:10 Dose: 40 meq Sodium Chloride (Saline Flush) 10 ml FLUSH ONETIME ONE Stop: 12/30/17 11:25 Last Admin: 12/30/17 11:35 Dose: 10 ml
--- NOTE | 2018-01-02 09:39 | CT ---
CT abdomen and pelvis Comparison: Previous CT abdomen and pelvis exam of 12/27/17. Technique: Multiple axial sections were obtained from above the dome of the diaphragm inferiorly through the pubic symphysis. Intravenous and oral contrast was utilized. Oral contrast not seen within distal small bowel loops. Findings: Diffuse inflammatory change is seen within the right lower abdomen. Hounsfield unit measurements of fluid is seen within the right lower abdomen which may represent an abscess measuring around 7.3 cm in greatest dimension. Inflammatory change has increased from previous exam. Visualized lung bases show nothing acute. Liver shows no focal parenchymal abnormality other than a cyst within the dome of the left lobe measuring about 1.4 cm. Spleen appears within normal limits. Moderately large hiatal hernia is noted. Adrenal glands show no nodule. Gallbladder contains no calcified gallstones. Kidneys show symmetric contrast enhancement without hydronephrosis or mass. Aorta shows no aneurysmal dilatation. No retroperitoneal adenopathy or mesenteric abnormalities are seen. Calcified uterine fibroid is noted. This is similar to prior CT exam. No additional pelvic abnormality is seen. Delayed images show contrast within the distal ureters and within the bladder. Bone window settings were reviewed which appear within normal limits for the patient's age. Impression: 1. Increasing inflammatory change within the right lower abdomen from prior CT exam. Fluid is now seen within the right lower abdomen measuring around 7.3 cm in greatest dimension possibly due to abscess. 2. Other incidental findings as noted above which are stable. Diagnostic code #5 I agree with preliminary report from [facility], finalized at 12/30/17, 1:07 PM Central Time
== END 2017-12-30 15:58 | DRG 373 ==
LOC: JD.ED 10:10 → JD.MS 13:02
PROVIDERS: ADMIT Student in an Organized Health Care Education/Training Program; ATTEND Student in an Organized Health Care Education/Training Program
DX: K35.3 Acute appendicitis with localized peritonitis (principal); I10 Essential (primary) hypertension; K21.9 Gastro-esophageal reflux disease without esophagitis; K44.9 Diaphragmatic hernia without obstruction or gangrene; D50.9 Iron deficiency anemia, unspecified; E66.9 Obesity, unspecified; Z68.37 Body mass index [BMI] 37.0-37.9, adult; H54.7 Unspecified visual loss; Z88.1 Allergy status to other antibiotic agents; Z91.041 Radiographic dye allergy status; Z79.899 Other long term (current) drug therapy
CPT/HCPCS: 36415; 74177; 74177-26; 80048; 80053; 82962; 83735; 84100; 85025; 86140; 96365; 96366; 96367; 99285; 99285-25; A9270-GY; C9113; J0694; J1170; J1200; J1650; J2405; J2543; J3480; J7030; J7040; J7050; Q9967